=== PATIENT | male | born 2000 | race Caucasian/White ===

== ENCOUNTER 2022-10-20 14:51 | Emergency (ER) | payer MEDICAID ==
[~2022-10-20] VITALS: Ht 170.2 cm; Wt 86.0 kg
[2022-10-20 15:26] VITALS: BP 130/82
[2022-10-20] MEDS ORDERED: ACET-2708 MT (17:58)
[2022-10-20] MEDS ORDERED: NAPR-681 MT (17:58)
== END 2022-10-20 18:53 | disposition home or self-care (01) ==
LOC: ER 14:51
DX: S83.92XA Sprain of unspecified site of left knee, initial encounter (principal); X50.1XXA Overexertion from prolonged static or awkward postures, initial encounter; Y93.89 Activity, other specified; Y92.89 Other specified places as the place of occurrence of the external cause; Y99.8 Other external cause status
CPT/HCPCS: 73562; 99283; Z7610